=== PATIENT | male | born 1930 | race Caucasian/White ===

== ENCOUNTER → 2017-01-17 | Day surgery (SDC) | payer MEDICARE, OTHER ==
[~2017-01-17] VITALS: Ht 185.4 cm; Wt 91.4 kg
[~2017-01-17] MED LIST: *ENALAPRILAT 1.25 MG/ML VIAL PERIprocedural Use ONLY ONE; *ONDANSETRON 4 MG VIAL PERIprocedural Use ONLY ONE; ASPI81TA11 PO; BUPIVACAINE/EPINEPHRINE 0.5% 50 ML VIAL ONE; CHLORHEXIDINE GLUCONATE 2 % 1 PACK (2 CLOTHS) TOPICAL PRN; CILO100T PO; CLAR10CA3 PO; CLOPIDOGREL 300 MG TAB PO ONE; DO NOT ADM ANY ANTICOAGULANT DRUGS PRN; FAMOTIDINE 20 MG/2 ML VIAL ONE; FEXO180T PO; GLIP5TAB8 PO; HEPARIN SODIUM - IV 10,000 UNITS/10 ML VIAL ONE; HEPARIN SODIUM - SQ 10,000 UNITS/ML VIAL ONE; INSULIN HUMAN REGULAR 1,000 UNITS/10 ML VIAL SQ PRN; IOHEXOL 300 MG/ML 50 ML BTL (for RAD DIAG) OTHER ONE; IOHEXOL 350 MG/ML 100 ML BTL (for RAD DIAG) OTHER ONE; LACTATED RINGER'S 500 ML INJ IV SCH; LANTINJ SQ; LIDOCAINE HCL 1% PF 5 ML AMPULE OTHER ONE; LOPE2TAB21 PO; LOTR5CAP3 PO; MAGNESIUM SULFATE 1 GM/100 ML IV PRN; METOPROLOL TARTRATE 25 MG TAB PO PRN; MIDAZOLAM HCL 2 MG/2 ML VIAL ONE; MULT-65 PO; NOVOINJ3 SQ; OMEGCAP PO; ONDANSETRON HCL 4 MG/2 ML VIAL IV PUSH PRN; POTASSIUM CHLOR 20 MEQ 100 ML x 2 BAGS IV PRN; POTASSIUM CHLOR 20 MEQ/100 ML x 1 BAG IV PRN; POTASSIUM PHOSPHATE 21 MMOL/NS 250 ML IV PRN; POVIDONE IODINE 5% (ANTISEPSIS KIT) 4 APPLICATIONS EACH NARE PRN; PROP120C PO; PROPOFOL 200 MG/20 ML AMP IV ONE; PROTAMINE SULFATE 50 MG/5 ML VIAL IV ONE; PROTAMINE SULFATE 50 MG/5 ML VIAL IV PUSH ONE; SODIUM CHLORID 0.9% 500 ML IV PRN; SODIUM CHLORIDE 0.9% FLUSH 10 ML FLUSH IV FLUSH PRN; TERA10CA3 PO; ZOCO5TAB PO; ceFAZolin 1,000 MG/NS 100 ML IV SCH; ePHEDrine/NS 25 MG/5 ML SYR IV ONE
[2017-01-17 09:20] LABS: BASOPHIL # 0.1 TH/MM3 (0-0.2); EOSINOPHIL # 0.1 TH/MM3 (0-0.4); EOSINOPHIL % 0.9 % (0.0-4.0); HEMATOCRIT 40.2 % (39.0-51.0); HEMO FLAGS DIFF FINAL; LYMPH % 28.7 % (9.0-44.0); LYMPHOCYTE # 1.9 TH/MM3 (1.0-4.8); MEAN CELL VOLUME 90.9 FL (80.0-100.0); MEAN CORPUSCULAR HEMOGLOBIN 30.8 PG (27.0-34.0); MEAN CORPUSCULAR HGB CONC 33.8 % (32.0-36.0); MONO % 8.2 % (0.0-8.0); NEUT % 61.2 % (16.0-70.0); PLATELET COUNT 133 TH/MM3 (150-450); RED BLOOD COUNT 4.42 MIL/MM3 (4.50-5.90); WHITE BLOOD COUNT 6.6 TH/MM3 (4.0-11.0)
[2017-01-17] MEDS: LACTATED RINGER'S 1000 ML IV PRN (09:20)
[2017-01-17 09:29] LABS: APTT (PATIENT) 24.1 SEC (24.3-30.1); PROTHROMBIN TIME - PATIENT 10.6 SEC (9.8-11.6)
[2017-01-17 09:54] LABS: BICARBONATE 25.3 MEQ/L (21.0-32.0); POTASSIUM 4.3 MEQ/L (3.5-5.1)
--- NOTE | 2017-01-17 14:06 | EKG ---
Date Performed: 01/17/2017 Time Performed: 09:32:38 PTAGE: 86 years EKG: Sinus rhythm NORMAL ECG Compared to prior tracing no significant change PREVIOUS TRACING : 03/29/2002 13.58 DOCTOR: Bentley Guillen Interpretating Date/Time 01/17/2017 14:04:38
[2017-01-17 17:15] VITALS: BP 195/74; PULSE 78; RESP 20; TEMP 97.6; O2SAT 99
--- NOTE | 2017-01-19 22:33 | MP ---
cc: ELENITA LARKIN DATE OF SURGERY January 17, 2017 PREOPERATIVE DIAGNOSIS Disabling bilateral lower extremity claudication. POSTOPERATIVE DIAGNOSIS Disabling bilateral lower extremity claudication. PROCEDURE Aortofemoral arteriogram, right common iliac, left external iliac percutaneous balloon angioplasty and stent placement. SURGEON Elenita Larkin MD [employer] LEOLA Alexander ANESTHESIA Local MAC. DESCRIPTION OF THE OPERATIVE PROCEDURE With the patient in the supine position IV sedation was induced, the abdomen, both groins and thighs prepped with Betadine and draped in a sterile fashion. Following a protocol time-out, the skin and subcutaneous tissue surrounding proposed right common femoral access site was preemptively infiltrated with 0.5% Marcaine with epinephrine. Utilizing ultrasound guidance and the Seldinger approach, micro access the right mid common femoral was accomplished. An Advantage guidewire was advanced through the micro sheath into the subrenal aorta and the micro sheath exchanged for a 5-Greek hemostatic sheath. An Omni catheter was negotiated over the guidewire into the suprarenal aorta. Flush aortogram with hand diluted contrast injection confirmed the following CT angiographic findings: The mid aorta exhibited an eccentric, calcified shelf of plaque along the left lateral wall which produced moderate constriction of the aortic lumen to approximately 10-12 mm in maximal diameter. However, the constriction did not appear to be flow flow-limiting. The proximal right common femoral artery exhibited a focal, high-grade 70 plus percent stenosis beyond which the common femoral was concentrically calcified and diffusely sclerotic down to its bifurcation. Beyond this the external iliac and common femoral appeared widely patent. On the left side, focal, high-grade stenoses __ percent exhibited within the origins of both the internal and external iliac arteries. Otherwise, the left iliac arteries appeared relatively non-diseased as did the left common femoral artery. Both superficial femoral arteries were patent throughout, although the left SFA was diffusely constricted in caliber and a focal, near-complete occlusion was evident at the adductor level. Detailed views, AP and oblique of the left SFA origin failed to identify a stenosis at the SFA origin, although one is suspected due to the diminished SFA caliber throughout. The popliteal arteries were widely patent and on the right side uninterrupted two-vessel runoff via the posterior tibial and peroneal maintained, on the left side, three-vessel runoff to the left foot was maintained. A 5 Greek sheath was upsized to a 6-Greek sheath. The left common femoral was accessed in the identical fashion in a 6-Greek bright tip sheath position. Utilizing roadmapping guidance, the right common and left external iliac artery stenoses were balloon angioplastied, right with a 6 x 60 mm balloon followed by deployment of a 7 x 60 mm balloon expandable stent. On the left side a 6 x 28 mm balloon followed by deployment of a 6 x 20 mm balloon expandable stent. Prior to angioplasty and stent placement the patient was systemically heparinized with 5000 units and ACT measured in the 260s. At the conclusion of the procedure, minor extravasation was apparent at the left common femoral access site and for this reason, heparin was reversed with 25 milligrams of protamine, the left femoral sheath removed and hemostasis achieved with compression. The right femoral sheath was left in place. It should also be noted that completion angiogram revealed wide patency of the angioplasty/___ sites. No technical complications otherwise apparent. At the conclusion of the procedure Doppler flow was robust, biphasic within the pedal arteries bilaterally. The patient returned to post anesthesia recovery in stable condition having tolerated the procedure well. Elenita Larkin MD JTS/URVASHI /4:11 PM /10:12 PM
== END | disposition home or self-care (01) ==
LOC: HCVO 08:28
PROVIDERS: ATTEND Surgery Vascular Surgery
DX: I70.213 Atherosclerosis of native arteries of extremities with intermittent claudication, bilateral legs (principal); E11.22 Type 2 diabetes mellitus with diabetic chronic kidney disease; I12.9 Hypertensive chronic kidney disease with stage 1 through stage 4 chronic kidney disease, or unspecified chronic kidney disease; N18.9 Chronic kidney disease, unspecified; I25.10 Atherosclerotic heart disease of native coronary artery without angina pectoris; E78.00 Pure hypercholesterolemia, unspecified; Z87.891 Personal history of nicotine dependence; Z79.82 Long term (current) use of aspirin; Z79.4 Long term (current) use of insulin; Z79.899 Other long term (current) drug therapy
CPT/HCPCS: 00880; 37221; 37226; 75716; 80048; 82948; 85025; 85610; 85730; 86850; 86900; 86901; 93005; C1725; C1769; C1876; J0690; J1644; J2250; J2405; J2720; J3010; J7120; Q9967